=== PATIENT | male | born 1955 | race Caucasian/White ===

== ENCOUNTER → 2024-08-23 | Outpatient (CLI) | payer MEDICARE, MEDICAID, SELFPAY ==
[2024-08-23 13:11] LABS: Basophils % (Auto) 0 % (0-2.5); Eosinophils # (Auto) 0.2 Thou/mm3 (0.0-0.5); Eosinophils % (Auto) 3 % (0-10); Hematocrit 42.7 % (41.0-53.0); Hemoglobin 14.2 g/dL (13.5-16.0); Immature Granulocytes % (Auto) 0 % (0-0); Immature Granulocytes Auto 0.02 Thou/mm3 (0.00-0.00); Lymphocytes # (Auto) 2.1 Thou/mm3 (1.0-4.8); Lymphocytes % (Auto) 27 % (10-50); Mean Corpuscular HGB Conc 33.3 g/dl (31.0-37.0); Mean Corpuscular Hemoglobin 29.2 pg (25.0-35.0); Mean Corpuscular Volume 88 fL (80-100); Monocytes # (Auto) 0.5 Thou/mm3 (0.0-0.8); Monocytes % (Auto) 7 % (0-12); Neutrophils % (Auto) 63 % (37-80); Nucleated Red Blood Cell % 0 /100 WBC (0); Platelet Count 186 Thou/mm3 (140-440); RDW Standard Deviation 41.3 fL (35.1-43.9); Red Blood Count 4.87 Miln/mm3 (4.50-5.90); White Blood Count 7.9 Thou/mm3 (3.8-10.6)
[2024-08-23 13:28] LABS: Alanine Aminotransferase 31 U/L (10-49); Albumin, Serum 4.7 gm/dL (3.4-4.8); Albumin/Globulin Ratio 1.9 (1.2-2.2); Alkaline Phosphatase 95 U/L (46-116); Anion Gap 6 (7-16); Aspartate Amino Transferase 21 U/L (0-34); BUN/Creatinine Ratio 17 Ratio (12-20); Bilirubin,Total 0.2 mg/dL (0.3-1.2); Blood Urea Nitrogen 19 mg/dL (9-23); Calcium 10.3 mg/dL (8.3-10.6); Calcium (Corrected) 10.3 mg/dL (8.5-10.1); Carbon Dioxide 30.9 mMol/L (20.0-31.0); Chloride 101 mMol/L (98-107); Creatinine (Component) 1.1 mg/dL (0.6-1.3); Free T4 (Free Thyroxine) 1.12 ng/dL (0.89-1.76); Globulin 2.5 gm/dL (2.3-3.5); Glucose 126 mg/dL (74-106); Osmolality,Calculated 279 (275-295); Potassium 4.2 mMol/L (3.4-5.1); Sodium 138 mMol/L (136-145); Thyroid Stimulating Hormone 1.79 uIU/mL (0.55-4.78); Total Protein 7.2 gm/dL (5.7-8.2); eGFR > 60 See Note
[2024-08-23 13:29] LABS: Ferritin 454 ng/mL (10.5-307.3)
[2024-08-23 13:33] LABS: Sed Rate (ESR) 27 mm/hr (0-20)
== END | disposition home or self-care (01) ==
LOC: COPL 12:00
PROVIDERS: PCP Family Medicine; Referring Provider Family Medicine; Visit Provider Family Medicine
DX: E11.65 Type 2 diabetes mellitus with hyperglycemia (principal); M51.360 Other intervertebral disc degeneration, lumbar region with discogenic back pain only; G47.00 Insomnia, unspecified
CPT/HCPCS: 36415; 80053; 82728; 84439; 84443; 85025; 85652

== ENCOUNTER → 2024-09-21 | Outpatient (CLI) | payer MEDICARE, MEDICAID, SELFPAY ==
[2024-09-21 12:14] LABS: Basophils % (Auto) 0 % (0-2.5); Eosinophils # (Auto) 0.3 Thou/mm3 (0.0-0.5); Eosinophils % (Auto) 4 % (0-10); Hematocrit 44.2 % (41.0-53.0); Hemoglobin 14.7 g/dL (13.5-16.0); Immature Granulocytes % (Auto) 0 % (0-0); Immature Granulocytes Auto 0.03 Thou/mm3 (0.00-0.00); Lymphocytes # (Auto) 1.7 Thou/mm3 (1.0-4.8); Lymphocytes % (Auto) 25 % (10-50); Mean Corpuscular HGB Conc 33.3 g/dl (31.0-37.0); Mean Corpuscular Hemoglobin 28.7 pg (25.0-35.0); Mean Corpuscular Volume 86 fL (80-100); Monocytes # (Auto) 0.5 Thou/mm3 (0.0-0.8); Monocytes % (Auto) 8 % (0-12); Neutrophils # (Auto) 4.4 Thou/mm3 (1.8-7.7); Neutrophils % (Auto) 63 % (37-80); Nucleated Red Blood Cell % 0 /100 WBC (0); Platelet Count 157 Thou/mm3 (140-440); RDW Standard Deviation 40.9 fL (35.1-43.9); Red Blood Count 5.12 Miln/mm3 (4.50-5.90); White Blood Count 6.9 Thou/mm3 (3.8-10.6)
[2024-09-21 12:22] LABS: Glucose Estimated Average 143 mg/dL (80-131); Hemoglobin A1C 6.6 % Hgb (4.8-6.0)
[2024-09-21 12:40] LABS: Alanine Aminotransferase 35 U/L (10-49); Albumin, Serum 4.9 gm/dL (3.4-4.8); Albumin/Globulin Ratio 1.9 (1.2-2.2); Alkaline Phosphatase 92 U/L (46-116); Anion Gap 8 (7-16); Aspartate Amino Transferase 23 U/L (0-34); BUN/Creatinine Ratio 18 Ratio (12-20); Bilirubin,Total 0.4 mg/dL (0.3-1.2); Blood Urea Nitrogen 18 mg/dL (9-23); Calcium 10.4 mg/dL (8.3-10.6); Calcium (Corrected) 10.4 mg/dL (8.5-10.1); Carbon Dioxide 31.7 mMol/L (20.0-31.0); Cardiac Risk Estimate 4.8 RATIO (4.0-6.7); Chloride 100 mMol/L (98-107); Cholesterol 169 mg/dL (132-200); Globulin 2.6 gm/dL (2.3-3.5); Glucose 146 mg/dL (74-106); HDL Cholesterol 35 mg/dL (40-60); LDL Cholesterol,Calculated 105 mg/dL (0-130); Osmolality,Calculated 284 (275-295); Potassium 4.2 mMol/L (3.4-5.1); Sodium 140 mMol/L (136-145); Total Protein 7.5 gm/dL (5.7-8.2); Triglycerides 147 mg/dL (30-150); eGFR > 60 See Note
[2024-09-21 13:23] LABS: Collection Type, Urine Clean Catch; WBC,Urine 0 /hpf (0-5)
[2024-09-21 13:47] LABS: Bilirubin,Urine Negative (Negative); Blood,Urine Negative (Negative); Clarity,Urine Clear (Clear/Hazy); Color,Urine Lt-Yellow (Lt Yel-Yel); Glucose, Urine Negative (Negative); Ketones,Urine Negative (Negative); Leukocyte Esterase,Urine Negative (Negative); Nitrite,Urine Negative (Negative); PH,Urine 6.5 (5.0-7.0); Protein,Urine Negative (Neg - Trace); RBC,Urine 3 /hpf (0-3); Specific Gravity,Urine 1.016 (1.001-1.035); Squamous Epithelial Cell,Urine < 1 /hpf (0-5); Urobilinogen,Urine Negative mg/dL (0.0-1.0)
[2024-09-21 14:16] LABS: Amphetamine/Methamp Scrn,U Negative (Negative); Barbiturate Screen,Urine Negative (Negative); Benzodiazepines Screen,Urine Positive (Negative); Benzoylecgonine Screen, Ur Negative (Negative); Creatinine MALB Rnd Ur 72 mg/dL (30-125); Fentanyl Screen,Urine Negative (Negative); Microalbumin, Random Urine < 3 mg/L (0-300); Opiate Screen,Urine Positive (Negative); THC Screen,Urine Negative (Negative)
== END | disposition home or self-care (01) ==
LOC: COPL 11:28
PROVIDERS: PCP Family Medicine; Referring Provider Family Medicine; Visit Provider Family Medicine
DX: E11.65 Type 2 diabetes mellitus with hyperglycemia (principal); Z79.891 Long term (current) use of opiate analgesic
CPT/HCPCS: 36415; 80053; 80061; 80307; 81001; 82043; 82570; 83036; 85025

== ENCOUNTER → 2024-11-01 | Outpatient (CLI) | payer MEDICARE, MEDICAID, SELFPAY ==
--- NOTE | 2024-11-01 13:00 | XR_ITS ---
Examination: Bone densitometry Date and time of exam:November 01, 2024 1320 hrs. Indications: 69-year-old male with diagnosis age related osteoporosis, ankle fracture 28 years ago, diabetic, vitamin D 2 years Technique: Lumbar spine and hip total bone mineralization values of an calculated. Peak reference and age match control results have been displayed. Findings: Lumbar spine total bone mineralization is1.047 gm/cm2. This is 0.4 standard deviations below peak reference. This is 0.4 standard deviations above age-matched controls. Hip total bone mineralization is 0.966 gm/cm2 This is 0.4 standard deviations below peak reference. This is 0.1 standard deviations above age-matched controls Impression: There is normal mineralization based on lumbar spine measurements. There is osteopenia based on hip measurements
== END | disposition home or self-care (01) ==
PROVIDERS: PCP Family Medicine; Referring Provider Family Medicine; Visit Provider Family Medicine
DX: M85.88 Other specified disorders of bone density and structure, other site (principal)
CPT/HCPCS: 77080

== ENCOUNTER 2024-11-03 21:51 | Inpatient (IN) | payer MEDICARE, MEDICAID, SELFPAY ==
[2024-11-03 21:59] VITALS: PULSE 93; RESP 18; O2SAT 98
[2024-11-03 22:14] VITALS: BP 128/83; PULSE 107; RESP 19; TEMP 36.5; O2SAT 97
--- NOTE | 2024-11-03 22:41 | EDRME_ITS ---
Rapid Medical Screening Exam [facility] Arrival date/time: 11/03/24 21:51 69M with history of Afib, DM, and cholecystectomy presents to ED with 4 days of worsening constipation, ab pain, and N/V. Chief Complaint: Abdominal Pain Vital signs: Vital Signs Temperature 97.7 F 11/03/24 22:14 Pulse Rate 107 H 11/03/24 22:14 Respiratory Rate 19 11/03/24 22:14 Blood Pressure 128/83 11/03/24 22:14 Pulse Oximetry (%) 97 11/03/24 22:14 Oxygen Delivery Method Room Air 11/03/24 22:14
[2024-11-03 23:23] VITALS: BMI 34.3
[2024-11-03 23:34] LABS: Basophils % (Auto) 0 % (0-2.5); Eosinophils % (Auto) 0 % (0-10); Hematocrit 51.2 % (41.0-53.0); Hemoglobin 17.2 g/dL (13.5-16.0); Immature Granulocytes % (Auto) 1 % (0-0); Immature Granulocytes Auto 0.09 Thou/mm3 (0.00-0.00); Lymphocytes # (Auto) 0.7 Thou/mm3 (1.0-4.8); Lymphocytes % (Auto) 5 % (10-50); Mean Corpuscular HGB Conc 33.6 g/dl (31.0-37.0); Mean Corpuscular Hemoglobin 28.9 pg (25.0-35.0); Mean Corpuscular Volume 86 fL (80-100); Monocytes % (Auto) 6 % (0-12); Neutrophils % (Auto) 88 % (37-80); Nucleated Red Blood Cell % 0 /100 WBC (0); Platelet Count 176 Thou/mm3 (140-440); RDW Standard Deviation 42.2 fL (35.1-43.9); Red Blood Count 5.96 Miln/mm3 (4.50-5.90); White Blood Count 14.8 Thou/mm3 (3.8-10.6)
[2024-11-03 23:35] LABS: Lactate (Lactic Acid) 4.1 mMol/L (0.4-2.0)
[2024-11-03] MEDS: ONDANSETRON INJ 2 MG/ML INJ 2 ML 4 MG IV (23:40)
--- NOTE | 2024-11-03 23:44 | EDNOTE_ITS ---
ED Abdominal Pain RME/HPI General Chief Complaint: Abdominal Pain Stated complaint: CONSTIPATION Time seen by provider: 11/03/24 23:44 Arrival date/time: 11/03/24 21:51 Limitations: no limitations RME / HPI RME / HPI narrative: 11/03/24 21:51 69M with history of Afib, DM, and cholecystectomy presents to ED with 4 days of worsening constipation, ab pain, and N/V. Dr. Hay's Main ED Evaluation: 69yo male with a history of DM, aFib presents to the ED for a chief complaint of constipation x 4 days. Patient states he was able to pass small amounts of stool yesterday, but has continued to have generalized abdominal pain and N/V x 3 days, so he came in for evaluation. He denies any fever, chills, UTI symptoms or any other associated symptoms. No known allergies. Related Data Home Medications ?Medication ?Instructions ?Recorded ?Confirmed alprazolam 0.5 mg tablet (Xanax) 0.5 mg PO BID PRN Anx iety 08/25/18 08/22/22 tramadol 50 mg tablet 50 mg PO BID 08/25/18 baclofen 10 mg tablet 10 mg PO BID PRN muscle spas ms 08/02/19 08/22/22 colchicine 0.6 mg tablet 0.6 mg PO QDAY 08/02/1908/07 aspirin 81 mg tablet,delayed 81 mg PO QDAY 08/21/22 release cetirizine 10 mg tablet 10 mg PO QDAY 08/21/2208/22 colchicine 0.6 mg tablet 0.6 mg PO QDAY 08/21/2208/07 ferrous sulfate 325 mg (65 mg 325 mg PO QDAY 08/21/22 08/22/22 iron) tablet gabapentin 300 mg tablet,extended 300 mg PO TID 08/22/22 release 24 hr pentoxifylline 400 mg 400 mg PO DAILY 08/21/22 tablet,extended release Previous Rx's ?Medication ?Instructions ?Recorded metformin 1,000 mg tablet 1,000 mg PO BID #0 tabs 08/08 Allergies Allergy/AdvReac Type Severity Reaction Status Date / Time No Known Allergies Allergy Verified 08/22/22 09:31 Review of Systems Review of Systems Systems Reviewed: All systems reviewed, normal except as documented ED Exam General Limitations: Present no limitations General appearance: Present alert and other (appears uncomfortable) Head Head exam: Present atraumatic Eye Eye exam: Present normal appearance, PERRL and EOMI ENT ENT exam: Present normal exam, normal oropharynx and mucous membranes dry Neck Neck exam: Present normal inspection, full ROM and trachea midline Chest Chest inspection: Present normal inspection and symmetric chest wall rise Respiratory Respiratory exam: Present normal lung sounds bilaterally Cardiovascular Cardiovascular exam: Present regular rate, normal rhythm and normal heart sounds Abdominal Exam Abdominal exam: Present soft, distention (significant), tenderness (diffuse; has more pain at the left mid abdomen compared to the right), guarding, scar (well- healed at the midline) and other (high pitched bowel sounds) Extremities Exam Extremities exam: Present normal inspection and full ROM Back Exam Back exam: Present normal inspection and full ROM Neurological Exam Neurological exam: Present alert, oriented X3 and CN II-XII intact Psychiatric Psychiatric exam: Present normal affect and normal mood Skin Skin exam: Present warm, dry, intact and normal color Course Course Course Narrative: 2345: Sepsis alert initiated. Orders made at this time are congruent with ED Adult Sepsis Order List. Re-evaluation is to be completed. 2359: NS IVF started. 0230: Sepsis reassessment performed consisting of lab review, vitals, physical exam including auscultation of heart, lungs, and visual evaluation of capillary refills, mucosal membranes and extremities. Quality Measures Possible source: GI tract/intra-abdominal Blood cultures ordered: yes Antibiotic ordered: Yes Pertinent labs: 11/03/24 11/04/24 23:27 00:24 Lactic Acid 4.1 H* mMol/L Pending (0.4-2.0) Procalcitonin 0.41 ng/ml (0.0-0.49) sepsis Orders Category Date Time Status COVID-19 Screening Questionnaire NOW Care 11/04/24 04:[address] Screening NOW Care 11/03/24 22:[address] Screening NOW Care 11/03/24 23:48 Completed Pickling Tank Operator STAT Care 11/03/24 23:45 Active Continuous Pulse Oximetry STAT Care 11/03/24 23:45 Completed Decision to Admit X1 Care 11/04/24 04:30 Completed EKG (ED ONLY) *Do not use* NOW Care 11/03/24 23:45 Completed Insert IV NOW Care 11/03/24 22:40 Active Insert IV NOW Care 11/03/24 23:45 Completed NPO STAT Care 11/03/24 23:45 Active Strict Intake and Output Routine Care 11/03/24 23:[address] angio abdomen pelvis Stat Exams 11/03/24 23:47 Ordered EKG (ED Only) Stat Exams 11/03/24 23:45 Ordered XR chest 1V SEPSIS PROTOCOL Stat Exams 11/03/24 23:47 Completed B-Type Natriuretic Peptide Stat Lab 11/03/24 23:27 Completed Blood Culture (Lab) Stat Lab 11/03/24 23:45 Received CBC Stat Lab 11/03/24 23:27 Completed CMP [Comprehensive Metabolic Panel] Stat Lab 11/03/24 23:27 Completed LDH (Lactate Dehydrogenase) Stat Lab 11/03/24 23:27 Completed Lactate (Lactic Acid) Stat Lab 11/03/24 23:27 Completed Lactic Acid, 3 HR Stat Lab 11/04/24 00:24 Received Lipase Stat Lab 11/03/24 23:27 Completed Magnesium Stat Lab 11/03/24 23:27 Completed Partial Thromboplastin Time Stat Lab 11/03/24 23:27 Completed Phosphorous Stat Lab 11/03/24 23:27 Completed Procalcitonin Stat Lab 11/03/24 23:27 Completed Prothrombin Time with INR Stat Lab 11/03/24 23:27 Completed Troponin I Stat Lab 11/03/24 23:27 Completed Urinalysis Stat Lab 11/04/24 00:57 Completed Urine Culture Stat Lab 11/04/24 00:57 Received Morphine Inj Med 11/04/24 00:48 Discontinued 4 mg IVP X1 ONE Ondansetron Inj [Zofran Inj] Med 11/03/24 22:40 Discontinued 4 mg IV X1 ONE Piper/Tazo Inj [Zosyn Inj] 3.375 gm Med 11/04/24 03:18 Discontinued SODIUM CHLORIDE 0.9% (Popper) [NS 0.9% (Popper)] 50 ml IV X1 Sodium Chloride 0.9% 1000 ml [Ns] 2,328 ml Med 11/03/24 23:45 Discontinued IV 2,328 mls/hr Reevaluation(s) Reevaluation #1: Patient not vomiting at this time. Pain is improved. Not hypotensive. Abdomen without rebound. Time: 05:00 Reevaluation #2: Patient treated for sepsis, Zosyn is given. 30 mL/kg ideal body weight given. Lactic acid is pending. Time: 05:22 Vital Signs Vital signs: Vital Signs Temperature 97.7 F 11/03/24 22:14 Pulse Rate 107 H 11/03/24 22:14 Respiratory Rate 19 11/03/24 22:14 Blood Pressure 128/83 11/03/24 22:14 Pulse Oximetry (%) 97 11/03/24 22:14 Oxygen Delivery Method Room Air 11/03/24 22:14 Abdominal Pain MDM MDM Narrative MDM Narrative:: Patient has not had any emetic episodes here in the ED. His pain has improved and has not required any further pain medications. Patient data External records reviewed:: [facility] previous records (Per chart review, patient was seen here on 06/22/22 for cellulitis.) Clinical information provided by:: patient Social determinants that could affect healthcare access:: none Patient has the following chronic illnesses:: DM, aFib How is presenting disease/condition affected by chronic disease/condition?: uneffected by Evaluation data The following diagnostics were reviewed and interpreted by me:: lab results and radiology exam(s) Lab and/or radiology exams considered but not ordered:: none Interpretation Summary: WBC count is elevated at 14.8 with a left shift, Lactic Acid is elevated at 4.1, Glucose is elevated at 272, Lipase is normal, Telerad Preliminary Report Draft Patient: JUANCARLOS MCDANIEL [facility] Record#: [id number] Birthdate: 1955 Age/Sex: 69 / M Location: [facility] Attending Dr: Ordering Physician: Date of Service: Procedure(s): Accession Number(s): cc: ~ CT angiogram of abdomen and pelvis with intravenous contrast (axial sections with sagittal and coronal reformats) November 04, 2024 at 0102 hours Clinical History: 69-yo male with abdominal pain/ elevated lactic ac Compared with the prior study dated August 02, 2019. Findings: Left basilar dependent and streaky atelectasis is noted. Rectus muscle diastasis is present. There is a small fat-containing umbilical hernia. There is a small fat-containing hernia in the left lateral abdominal wall. There is a large left lower anterolateral abdominal wall hernia, incom pletely imaged, containing fat and mildly distended small bowel loops. Fatty infiltration of the liver is noted. The gallbladder is surgically absent. The spleen, pancreas, adrenals and kidneys are unremarkable. The ileal loops are mildly dilated with air-fluid levels. The appendix is not definitively visualized; however, there is no evidence of inflammatory process in the right lower quadrant. Moderate amount of fecal material is present in the colon and rectum. The urinary bladder is unremarkable. There is no free fluid, free air or abscess. The abdominal aorta demonstrates mild atheromatous calcification without evidence of dissection or aneurysm. There are postsurgical changes in the left inguinal region. Mild degenerative changes are noted in the lumbar spine. There is mild degenerative retrolisthesis of L1 on L2. There is a 1.7 cm lucent area in the left iliac bone, likely benign. Impression: Large left lower anterolateral abdominal wall hernia, incompletely imaged, containing fat and mildly distended small bowel loops, concerning for incarceration with associated small bowel obstruction. Recommend clinical correlation and follow-up. Other findings as described above. Report Electronically Signed By: Quoc Chacon 11/04/2024 3:02:37 AM [EST] Medications / Prescriptions Medications or Prescriptions considered but not ordered:: none Medication administrations:: Medication Administration History Acetaminophen (Acetaminophen 325 Mg Tablet) 650 mg PO Q6H PRN PRN Reason: Fever >101.5 Stop: 12/04/24 04:51 Acetaminophen (Acetaminophen 325 Mg Tablet) 650 mg PO Q6H PRN PRN Reason: PAIN SCALE 1-3 (mild Stop: 12/04/24 04:51 Baclofen (Baclofen 10 Mg Tablet) 10 mg PO QDAY CEDRIC Stop: 12/04/24 08:59 Dextrose (Dextrose 50%-Water Inj 50 Ml Syringe) 25 ml IV Q15MIN PRN PRN Reason: BG 50-70 responsive npo pt Stop: 12/04/24 04:56 Dextrose (Dextrose 50%-Water Inj 50 Ml Syringe) 50 ml IV Q15MIN PRN PRN Reason: BG <50 OR BG <70 & pt unresponsive Stop: 12/04/24 04:56 Glucagon (Glucagon Inj 1 Mg Vial) 1 mg IM Q15MIN PRN PRN Reason: BG <70, and no IV access Heparin Sodium (Porcine) (Heparin Sod Inj 5000 Unit/Ml Vial) 5,000 unit SC Q12H CEDRIC Stop: 11/18/24 04:59 Hydromorphone HCl (Hydromorphone Inj 2 Mg/Ml Vial) 1 mg IVP Q4H PRN PRN Reason: PAIN SCALE 7-10 (Severe Stop: 11/09/24 04:51 Sodium Chloride (Ns) 1,000 mls @ 100 mls/hr IV .Q10H CEDRIC Stop: 12/04/24 04:59 Insulin Human Lispro (Insulin Lispro (Admelog) 1 Unit/0.01 Ml Unit) 0 unit SC Q6H CEDRIC; Protocol Stop: 12/04/24 04:59 Ondansetron HCl (Ondansetron Inj 2 Mg/Ml Inj 2 Ml) 4 mg IV Q6H PRN; Protocol PRN Reason: NAUSEA OR VOMITING Stop: 12/04/24 04:51 Oxycodone/Acetaminophen (Oxycodone/Apap 5/325 Tablet) 1 tab PO Q6H PRN PRN Reason: PAIN SCALE 4-6 (Moderate Stop: 11/09/24 04:51 Pantoprazole Sodium (Pantoprazole Inj 40 Mg Vial) 40 mg IVP QDAY CEDRIC Stop: 12/04/24 08:59 Discontinued Medications Sodium Chloride (Ns) 2,328 mls @ 2,328 mls/hr 30 ml/kg infuse over 60 min (2328 ml) IV .Q1H ONE Stop: 11/04/24 00:44 Last Infusion: 11/04/24 02:00 Dose: Infused Documented By: Admin: 11/03/24 23:59 Dose: 2,328 mls/hr Documented By: EF Piperacillin Sod/Tazobactam (Sod 3.375 gm/ Sodium Chloride) 50 mls @ 100 mls/hr IV X1 ONE Stop: 11/04/24 03:47 Last Infusion: 11/04/24 03:55 Dose: Infused Documented By: Admin: 11/04/24 03:25 Dose: 100 mls/hr Documented By: EF Morphine Sulfate (Morphine Sulf Inj 10 Mg/Ml Vial) 4 mg IVP X1 ONE Stop: 11/04/24 00:49 Last Admin: 11/04/24 00:53 Dose: 4 mg Documented By: EF Comments: Ondansetron HCl (Ondansetron Inj 2 Mg/Ml Inj 2 Ml) 4 mg IV X1 ONE; Protocol Stop: 11/03/24 22:41 Last Admin: 11/03/24 23:40 Dose: 4 mg Documented By: EF see above Consultations Consultation(s) initiated? (list below): Yes Consultation #1 (Physician, Specialty, Details): Discussed case with [Dr. Lewis] from [general surgery] regarding [consultation]. Discussed patients ED course, exam findings, labs, and radiology results. States to admit the patient to the hospitalist and agrees to consult. Time: 04:16 Consultation #2 (Physician, Specialty, Details): Discussed case with [the resident physician, attending Dr. Ortiz] from Hospitalist service regarding admission. Discussed patients ED course, exam findings, labs, and radiology results. The Hospitalist [agrees] to accept the patient for admission. Time: 04:19 Diagnosis Differential diagnosis abdominal pain: constipation, small bowel obstruction and other (dehydration, electrolyte abnormality) Most likely diagnosis given after review of the tests above:: see below Admission Indicated Admission indicated?: not indicated Admission Request Was there a request for admission?: No Disposition Plan Disposition Plan: Discharge Discharge Attestation Discharge Attestation: The patient and all family members were given an opportunity to ask questions and understood the discharge instructions. Discharge instructions specifically effects, indications for sooner follow up or return to the emergency department, and the expected course of current diagnosis. Patient condition: Stable Critical Care Time Critical Care Time Critical Care Time: Yes Total Critical Care Time (min.): 40 Attestation: The high probability of sudden, clinically significant deterioration in the patient?s condition required the highest level of my preparedness to intervene urgently. The services I provided to this patient were to treat and/or prevent clinically significant deterioration. Services included the following: chart data review, reviewing nursing notes and/or old charts, documentation time, professional benefits sales consultant collaboration regarding findings and treatment options, medication orders and management, direct patient care, vital sign assessments and ordering, interp reting and reviewing diagnostic studies and lab tests. Aggregate critical care time includes only time during which I was engaged in work directly related to the patient?s care, as described above, whether at bedside or elsewhere in the Emergency Department. It did not include time spent performing other reported procedures or the services of residents, students, nurses or physician assistants. Discharge Plan Plan Patient Disposition: Admit Acute Care w/in Hospital Problem List Clinical Impression: SBO (small bowel obstruction)
--- NOTE | 2024-11-03 23:47 | XR_ITS ---
Examination: CTA abdomen, with intravenous contrast. CTA pelvis, with intravenous contrast. 2-D sagittal and coronal reconstructions. 3-D reconstructions. Date and time of exam: October 27, 2024 0102 hrs. Indications: Severe abdominal pain and cramping beginning 2 days ago CTDI vol (mgy) 12.2 DLP (MGycm) 882 Technique: Multiple CTA images, 2.0 mm slice thickness, obtained abdomen, pelvis, with the high-resolution 64 slice scanner. 100 cc Isovue-370 is administered intravenously. Sagittal and coronal 2-D reconstructions are obtained. 3-D reconstructions, angiographic images are obtained. 3-D postprocessing, including vascular maximum intensity projections. Low dose protocols were performed. One or more of the following dose reduction techniques were used; automated exposure control, adjustment of the mA and/or KV according to patient size, use of iterative reconstruction technique. Findings: AP dimension ascending thoracic aorta 3.8 cm Mild enlargement cardiac contour Atelectasis in the left lower lobe Hepatomegaly 17 cm, splenomegaly 13 cm No pancreatic or adrenal mass Dilated small bowel loops Given the patient's size, the entire abdomen is not included on these films 10 mm fat-containing umbilical hernia Large left lateral abdominal wall hernia defect partly visualized containing small bowel, suspicious for incarceration of the small bowel axial image 253 Urinary bladder intact Transverse prostate dimension 3.8 cm Moderate osteopenia Impression: Hepatosplenomegaly Small bowel obstruction secondary to incarcerated small bowel in a partially visualized large left lateral abdominal wall hernia defect
--- NOTE | 2024-11-03 23:47 | XR_ITS ---
Examination: AP chest single view Technique one AP portable upright chest single view Exam date and time: November 03, 2024 1150 hrs. Comparison August 06, 2019 Indications: Sepsis alert Findings: [id number] prominence of ventricle Mild opacity left base retrocardiac Right lung clear Moderate osteopenia Impression: Suspicious for early left base pneumonia
[2024-11-03 23:53] LABS: Alanine Aminotransferase 67 U/L (10-49); Albumin, Serum 5.3 gm/dL (3.4-4.8); Albumin/Globulin Ratio 1.7 (1.2-2.2); Alkaline Phosphatase 106 U/L (46-116); Anion Gap 13 (7-16); Aspartate Amino Transferase 56 U/L (0-34); BUN/Creatinine Ratio 15 Ratio (12-20); Bilirubin,Total 0.6 mg/dL (0.3-1.2); Blood Urea Nitrogen 17 mg/dL (9-23); Calcium 10.4 mg/dL (8.3-10.6); Calcium (Corrected) 10.4 mg/dL (8.5-10.1); Carbon Dioxide 27.3 mMol/L (20.0-31.0); Chloride 95 mMol/L (98-107); Creatinine (Component) 1.1 mg/dL (0.6-1.3); Estimated Creatinine Clearance 85.2 mL/min (>60); Globulin 3.2 gm/dL (2.3-3.5); Glucose 272 mg/dL (74-106); Lipase 30 U/L (12-53); Osmolality,Calculated 281 (275-295); Potassium 4.2 mMol/L (3.4-5.1); Sodium 135 mMol/L (136-145); Total Protein 8.5 gm/dL (5.7-8.2); eGFR > 60 See Note
[2024-11-03] MEDS: SODIUM CHLORIDE 0.9% 1000 ML 2,328 ML 2328 ML IV (23:59)
[2024-11-04] VITALS (8 sets, daily range): BP systolic 100–125; BP diastolic 60–92; PULSE 70–127; RESP 14–18; TEMP 36.1–37; O2SAT 94–97
[2024-11-04 00:41] LABS: INR 1.1 (0.9-1.3); Partial Thromboplastin Time 28.2 Seconds (22.0-36.0); Prothrombin Time 11.7 Seconds (9.0-12.2)
[2024-11-04 00:45] LABS: B-Type Natriuretic Peptide 48 pg/mL (0-100)
[2024-11-04 00:47] LABS: LDH (Lactate Dehydrogenase) 359 U/L (120-246); Phosphorous 2.7 mg/dL (2.4-5.1); Procalcitonin 0.41 ng/ml (0.0-0.49); Troponin I < 0.002 ng/mL (0.0-0.045)
[2024-11-04] MEDS: MORPHINE SULF INJ 10 MG/ML VIAL 4 MG IVP (00:53)
[2024-11-04 01:06] LABS: Collection Type, Urine Clean Catch; Squamous Epithelial Cell,Urine 0 /hpf (0-5)
[2024-11-04 01:10] LABS: Bilirubin,Urine Negative (Negative); Blood,Urine Negative (Negative); Clarity,Urine Clear (Clear/Hazy); Color,Urine Yellow (Lt Yel-Yel); Glucose, Urine 1+ (Negative); Ketones,Urine 1+ (Negative); Leukocyte Esterase,Urine Negative (Negative); Nitrite,Urine Negative (Negative); PH,Urine 6.5 (5.0-7.0); Protein,Urine 1+ (Neg - Trace); RBC,Urine 2 /hpf (0-3); Specific Gravity,Urine 1.032 (1.001-1.035); Urobilinogen,Urine Negative mg/dL (0.0-1.0); WBC,Urine 1 /hpf (0-5)
[2024-11-04 02:29] LABS: Reflex Lactate? Y
[2024-11-04 03:00] LABS: Lactic Acid, 3 HR 3.2 mMol/L (0.4-2.0)
--- NOTE | 2024-11-04 03:02 | PRELIM_ITS ---
CT angiogram of abdomen and pelvis with intravenous contrast (axial sections with sagittal and coronal reformats) November 04, 2024 at 0102 hours Clinical History: 69-yo male with abdominal pain/ elevated lactic ac Compared with the prior study dated August 02, 2019. Findings: Left basilar dependent and streaky atelectasis is noted. Rectus muscle diastasis is present. There is a small fat-containing umbilical hernia. There is a small fat-containing hernia in the left lateral abdominal wall. There is a large left lower anterolateral abdominal wall hernia, incompletely imaged, containing fat and mildly distended small bowel loops. Fatty infiltration of the liver is noted. The gallbladder is surgically absent. The spleen, pancreas, adrenals and kidneys are unremarkable. The ileal loops are mildly dilated with air-fluid levels. The appendix is not definitively visualized; however, there is no evidence of inflammatory process in the right lower quadrant. Moderate amount of fecal material is present in the colon and rectum. The urinary bladder is unremarkable. There is no free fluid, free air or abscess. The abdominal aorta demonstrates mild atheromatous calcification without evidence of dissection or aneurysm. There are postsurgical changes in the left inguinal region. Mild degenerative changes are noted in the lumbar spine. There is mild degenerative retrolisthesis of L1 on L2. There is a 1.7 cm lucent area in the left iliac bone, likely benign. Impression: Large left lower anterolateral abdominal wall hernia, incompletely imaged, containing fat and mildly distended small bowel loops, concerning for incarceration with associated small bowel obstruction. Recommend clinical correlation and follow-up. Other findings as described above. Report Electronically Signed By: Quoc Chacon 11/04/2024 3:02:37 AM [EST]
[2024-11-04] MEDS: PIPER/TAZO INJ 3.375 GM in SODIUM CHLORIDE 0.9% (Popper) 50 ML IV ×3 (03:25→18:27)
--- NOTE | 2024-11-04 05:03 | EKG_ITS ---
[facility] Test Date: 2024-11-04 Pat Name: JUANCARLOS MCDANIEL Department: Room: - Gender: Male Bill Cutter: : 1955 Requested By: Timbo Ortiz Order Number: [id number] Reading MD: Timbo Ortiz Measurements Intervals [place] Rate: 95 P: 81 SC: 255 QRS: -45 QRSD: 104 T: 53 QT: 360 QTc: 453 Interpretive Statements SINUS RHYTHM WITH FIRST DEGREE AV BLOCK LEFT AXIS DEVIATION [QRS AXIS < -30] LOW QRS VOLTAGE IN PRECORDIAL LEADS [QRS DEFLECTION < 1.0 mV IN CHEST LEADS] POSSIBLE ANTERIOR MYOCARDIAL INFARCTION , PROBABLY OLD [30 ms Q WAVE IN V3/V4, OR R < 0.2 mV IN V4] Compared to ECG 08/21/2022 11:57:39 Left-axis deviation now present Incomplete right bundle-branch block no longer present Left anterior fascicular block no longer present Myocardial infarct finding still present /store/S0/[id number]
--- NOTE | 2024-11-04 05:03 | PD.HHHP ---
Documentation for date of: 11/04/24 HPI - Hospitalist History of Present Illness History of present illness: Patient is a 69 years old male with past medical history of diabetes mellitus, cholecystectomy, muscle graft from abdominal wall to left ankle who presented to the ED with complaint of abdominal pain, nausea and vomiting for 2 days. Patient states, he has not had a regular bowel movement for almost a week but has been passing small meaghan until couple days ago, since then he has not passed any bowel or gas. His abdominal pain also has been worsening, he had total of 5 episodes of vomiting following which he decided to visit the ED. Denies fever, chills, bloody stool, hematemesis, burning micturition. ED course: Patient had a pulse rate of 107 on presentation, rest of the vitals are within normal limits Lab results are significant for WBC of 14.8, hemoglobin 17.2, sodium 135, glucose 272, chloride 95, lactic acid 4.1 corrected calcium 10.4, AST 56, ALT 67, LDH 359, negative lipase and procalcitonin. Coagulation panel is within normal limits, urinalysis shows 1+ protein, 1+ glucose and 1+ ketones. Patient noted to have tachycardia on telemetry, EKG shows sinus tachycardia with prolonged FL interval Chest x-ray suspicious for early left wrist pneumonia CTA abdomen/pelvis, preliminary report shows absent rectal muscle diastases, large left lower anterolateral abdominal wall hernia, containing fat and mildly distended small bowel loops, concerning for incarceration with associated small bowel obstruction, fatty infiltration of the liver, left basilar dependent atelectasis Sepsis alert was called in the ED, patient received IV Zosyn, 30 mL/kg normal saline bolus, IV morphine and Zofran, general surgery was consulted by ED, recommended admission for small bowel obstruction. Past medical history: Diabetes mellitus Past surgical history: Cholecystectomy, multiple surgeries on left ankle including muscle graft from abdominal wall Social history: Used to smoke and drink alcohol, stopped both 25 years ago, denies illicit drug use Review of Systems Review of Systems Systems Reviewed: All systems reviewed, normal except as documented Meds Home Medications and Allergies Home Medications ?Medication ?Instructions ?Recorded ?Confirmed ?Type alprazolam 0.5 mg tablet (Xanax) 0.5 mg PO BID PRN Anxiety 08/25/18 08/22/22 History tramadol 50 mg tablet 50 mg PO BID 08/25/18 08/22/22 History baclofen 10 mg tablet 10 mg PO BID PRN muscle spasms 08/02/19 08/22/22 History colchicine 0.6 mg tablet 0.6 mg PO QDAY 08/02/19 08/22/22 History aspirin 81 mg tablet,delayed 81 mg PO QDAY 08/21/22 08/22/22 History release cetirizine 10 mg tablet 10 mg PO QDAY 08/21/22 08/22/22 History colchicine 0.6 mg tablet 0.6 mg PO QDAY 08/21/22 08/22/22 History ferrous sulfate 325 mg (65 mg 325 mg PO QDAY 08/21/22 08/22/22 History iron) tablet gabapentin 300 mg tablet,extended 300 mg PO TID 08/21/22 08/22/22 History release 24 hr pentoxifylline 400 mg 400 mg PO DAILY 08/21/22 08/22/22 History tablet,extended release Allergies Allergy/AdvReac Type Severity Reaction Status Date / Time No Known Allergies Allergy Verified 08/22/22 09:31 Exam Vital Signs Temp Pulse Resp BP Pulse Ox O2 Del Method 98.2 F 117 H 18 109/92 H 96 Room Air 11/04/24 04:50 11/04/24 04:50 11/04/24 04:50 11/04/24 04:50 11/04/24 04:50 11/04/24 04:50 Narrative GENERAL: Alert and oriented x4, appears in mild distress due to abdominal pain Eyes: EOMI, Anicteric HEART: Regular rate and rhythm, no murmurs, rubs or gallops. LUNGS: Clear on auscultation bilaterally, no wheeze, crackles ABDOMEN: Soft, distended, noticeable bulge on left lower quadrant, tender to palpate, more around the bulge, bowel sound present EXTREMITIES: No edema, noted previous graft over left ankle SKIN: Warm and dry, no jaundice or rashes noted on exposed skin. PSYCHIATRIC: Patient is in normal mood and affect NEURO: Alert and oriented, able to answer questions and follow commands appropriately, moving all his limbs spontaneously, no focal neurological deficit Results - Hospitalist Labs Diagrams: 11/03/24 23:27 11/03/24 23:27 Labs: Short CBC 11/03/24 Range/Units 23:27 WBC 14.8 H (3.8-10.6) Thou/mm3 Hgb 17.2 H (13.5-16.0) g/dL Hct 51.2 (41.0-53.0) % Plt Count 176 (140-440) Thou/mm3 BMP 11/03/24 23:27 Sodium 135 L Potassium 4.2 Chloride 95 L Carbon Dioxide 27.3 BUN 17 Creatinine 1.1 Glucose 272 H Calcium 10.4 Cardiac Enzymes 11/03/24 Range/Units 23:27 Troponin I < 0.002 (0.0-0.045) ng/mL Liver Function 11/03/24 Range/Units 23:27 Total Bilirubin 0.6 (0.3-1.2) mg/dL AST 56 H (0-34) U/L ALT 67 H (10-49) U/L Alkaline Phosphatase 106 (46-116) U/L Albumin 5.3 H (3.4-4.8) gm/dL Urine 11/04/24 Range/Units 00:57 Urine Color Yellow (Lt Yel-Yel) Urine Clarity Clear (Clear/Hazy) Urine pH 6.5 (5.0-7.0) Ur Specific [place] 1.032 (1.001-1.035) Urine Protein 1+ A (Neg - Trace) Urine Glucose (UA) 1+ A (Negative) Assessment & Plan -Hospitalist Additional Plan Additional Plan: Patient is a 69 years old male with past medical history of diabetes mellitus, previous abdominal surgeries presenting with abdominal pain, nausea, vomiting, inability to pass bowel or gas. Found to have small bowel obstruction, possible incarcerated hernia. #Small bowel obstruction #Concern for incarcerated bowel #Anterolateral abdominal wall hernia Patient presented with abdominal pain, nausea and vomiting. Has not had normal bowel movement for a week, complete absence of bowel movement and gas for 2 days. Has large bulge over left lower abdomen with significant tenderness. Preliminary CTA abdomen/pelvis shows large left lower jennie-lateral abdominal wall hernia, containing fat and mildly distended small bowel loops, concerning for incarceration with associated small bowel obstruction We will keep patient n.p.o. Started on IV hydration, normal saline at 100 cc/h Analgesics with IV Dilaudid, oxycodone and Tylenol as needed IV Zofran as needed for nausea/vomiting Discussed with general surgery, recommended holding off on upper GI series, plans to evaluate in the morning for possible need of surgery We will also hold off on NG tube, patient has stopped vomiting and denies any nausea currently #Possible sepsis #Lactic acidosis 2/4 SIRS criteria met with leukocytosis and tachycardia, has lactate of 4.1, negative procalcitonin Unclear source of infection, possibly abdominal infection, possibly secondary to bowel incarceration Sepsis alert was called in the ED due to leukocytosis and tachycardia Patient received 30 cc/kg IV hydration, IV Zofran We will continue with IV zosyn Normal saline at 100 cc/h Cultures obtained #First-degree AV block EKG shows sinus tachycardia with prolonged FL interval Outpatient follow-up #Diabetes mellitus #Hyperglycemia Patient has blood glucose of 272 Started on Lantus 10 along with insulin sliding scale Every 6 hours glucose checks, hypoglycemia protocol Hemoglobin A1c in a.m. #Transaminitis #Fatty liver Patient has AST/ALT of 56/67, ALP 106 CT abdomen/pelvis shows fatty liver We will follow-up with CMP in a.m. 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 DVT prophylaxis: SCDs, holding chemical prophylaxis pending surgery recommendation CODE STATUS: Full code Timbo Ortiz MD Quality Measures Quality Measures sepsis Current suspected stage: sepsis Possible source: GI tract/intra-abdominal Blood cultures ordered: yes Antibiotic ordered: Yes Advance care planning discussed with:: patient
[2024-11-04] MEDS: SODIUM CHLORIDE 0.9% 1000 ML 1,000 ML 100 ML IV ×2 (05:32→18:34)
[2024-11-04] MEDS: HYDROmorphone INJ 2 MG/ML VIAL 1 MG IVP ×3 (05:33→23:34)
[2024-11-04 06:15] LABS: Basophils % (Auto) 0 % (0-2.5); Eosinophils # (Auto) 0.1 Thou/mm3 (0.0-0.5); Eosinophils % (Auto) 1 % (0-10); Hematocrit 43.3 % (41.0-53.0); Hemoglobin 14.5 g/dL (13.5-16.0); Immature Granulocytes % (Auto) 0 % (0-0); Immature Granulocytes Auto 0.04 Thou/mm3 (0.00-0.00); Lymphocytes # (Auto) 2.2 Thou/mm3 (1.0-4.8); Lymphocytes % (Auto) 21 % (10-50); Mean Corpuscular HGB Conc 33.5 g/dl (31.0-37.0); Mean Corpuscular Hemoglobin 29.1 pg (25.0-35.0); Mean Corpuscular Volume 87 fL (80-100); Monocytes # (Auto) 0.8 Thou/mm3 (0.0-0.8); Monocytes % (Auto) 8 % (0-12); Neutrophils # (Auto) 7.3 Thou/mm3 (1.8-7.7); Neutrophils % (Auto) 70 % (37-80); Nucleated Red Blood Cell % 0 /100 WBC (0); Platelet Count 169 Thou/mm3 (140-440); RDW Standard Deviation 42.9 fL (35.1-43.9); Red Blood Count 4.98 Miln/mm3 (4.50-5.90); White Blood Count 10.5 Thou/mm3 (3.8-10.6)
[2024-11-04 06:28] LABS: Alanine Aminotransferase 51 U/L (10-49); Albumin, Serum 4.1 gm/dL (3.4-4.8); Albumin/Globulin Ratio 1.6 (1.2-2.2); Alkaline Phosphatase 83 U/L (46-116); Anion Gap 9 (7-16); Aspartate Amino Transferase 32 U/L (0-34); BUN/Creatinine Ratio 17 Ratio (12-20); Bilirubin,Total 0.5 mg/dL (0.3-1.2); Blood Urea Nitrogen 15 mg/dL (9-23); Calcium 8.9 mg/dL (8.3-10.6); Calcium (Corrected) 8.9 mg/dL (8.5-10.1); Carbon Dioxide 26.4 mMol/L (20.0-31.0); Cardiac Risk Estimate 4.6 RATIO (4.0-6.7); Chloride 104 mMol/L (98-107); Cholesterol 146 mg/dL (132-200); Creatinine (Component) 0.9 mg/dL (0.6-1.3); Estimated Creatinine Clearance 104.2 mL/min (>60); Globulin 2.5 gm/dL (2.3-3.5); Glucose 128 mg/dL (74-106); HDL Cholesterol 32 mg/dL (40-60); LDL Cholesterol,Calculated 93 mg/dL (0-130); Magnesium 2.1 mg/dL (1.6-2.6); Osmolality,Calculated 280 (275-295); Phosphorous 3.1 mg/dL (2.4-5.1); Potassium 4.4 mMol/L (3.4-5.1); Sodium 139 mMol/L (136-145); Total Protein 6.6 gm/dL (5.7-8.2); Triglycerides 107 mg/dL (30-150); eGFR > 60 See Note
[2024-11-04 06:39] LABS: Glucose Estimated Average 143 mg/dL (80-131); Hemoglobin A1C 6.6 % Hgb (4.8-6.0)
[2024-11-04] MEDS: oxyCODONE/APAP 5/325 TABLET 1 TAB PO ×3 (07:39→20:39)
[2024-11-04] MEDS: PANTOPRAZOLE INJ 40 MG VIAL IVP (08:36)
[2024-11-04] MEDS: BACLOFEN 10 MG TABLET PO (08:36)
[2024-11-04] MEDS: INSULIN GLARGINE (Lantus) 5 UNIT/0.05 ML (PER 5 UNITS) 10 UNIT SC (08:37)
--- NOTE | 2024-11-04 09:07 | PD.SURCONS ---
HPI Consult details History of present illness: 69M with DM presenting with abdominal pain and nausea. Pt reports his pain began yesterday in the left lower quadrant, associated with nausea/vomiting which has since resolved. He states his pain is now improved and he no longer has nausea, is feeling hungry. In ER he underwent CT which showed a left anterolateral abdominal wall hernia containing small bowel PMH: DM PSHx: Cholecystectomy, muscle graft from left abdominal wall to left ankle Review of Systems Review of Systems ROS Unobtainable: All systems reviewed & no additional complaints except as documented Meds Home Medications and Allergies Home Medications ?Medication ?Instructions ?Recorded ?Confirmed ?Type alprazolam 0.5 mg tablet (Xanax) 0.5 mg PO BID PRN Anxiety 08/25/18 08/22/22 History tramadol 50 mg tablet 50 mg PO BID 08/25/18 08/22/22 History baclofen 10 mg tablet 10 mg PO BID PRN muscle spasms 08/02/19 08/22/22 History colchicine 0.6 mg tablet 0.6 mg PO QDAY 08/02/19 08/22/22 History aspirin 81 mg tablet,delayed 81 mg PO QDAY 08/21/22 08/22/22 History release cetirizine 10 mg tablet 10 mg PO QDAY 08/21/22 08/22/22 History colchicine 0.6 mg tablet 0.6 mg PO QDAY 08/21/22 08/22/22 History ferrous sulfate 325 mg (65 mg 325 mg PO QDAY 08/21/22 08/22/22 History iron) tablet gabapentin 300 mg tablet,extended 300 mg PO TID 08/21/22 08/22/22 History release 24 hr pentoxifylline 400 mg 400 mg PO DAILY 08/21/22 08/22/22 History tablet,extended release Allergies Allergy/AdvReac Type Severity Reaction Status Date / Time No Known Allergies Allergy Verified 08/22/22 09:31 Exam Vital Signs Temp Pulse Resp BP Pulse Ox O2 Del Method 98.6 F 113 H 16 100/63 97 Room Air 11/04/24 08:00 11/04/24 08:00 11/04/24 08:00 11/04/24 08:00 11/04/24 08:00 11/04/24 08:00 Constitutional Constitutional: no acute distress Routine Respiratory Exam Respiratory: Present no resp distress Routine Abdominal Exam Abdominal: Present soft, hernia (left lower abdominal hernia with no overlying skin changes, no tenderness) and surgical scars (midline scar well-healed); Absent tenderness or distended Results Results: Laboratory Laboratory results: results reviewed Results: Imaging CT scan - abdomen: report reviewed and image reviewed Assessment & Plan Plan 69M with DMII, large left anterolateral abdominal wall hernia containing small bowel who presented with pain and nausea which has since resolved. Despite CT reading pt does not have signs/symptoms of bowel incarceration CLD, advance as tolerated Will follow up
--- NOTE | 2024-11-04 10:08 | CHAP ---
Patient was visited by the Spiritual Care Volunteer who prayed for them. (Volunteer was in the hospital from 09:20-10:08).
--- NOTE | 2024-11-04 10:29 | ESPR_ITS ---
Documentation for date of: 11/04/24 Subjective Subjective Interval history: Patient was seen and examined at bedside this AM. No acute exents overnight. Patient n.p.o., adequate urine output and mentation is at baseline. Patient endorses improvement of vomiting. Still has constant 6/10 central abdominal pain with minimal relief from medications. General surgery says that incarceration and small bowel obstruction are unlikely. Recommended to advance patient to clear liquid diet. If nausea or vomiting ensues, place patient n.p.o. and put an NG tube for small bowel series. General Surgery, Dr. Lewis consulted and closely following the case. Appreciate recommendations Exam Vital Signs Temp Pulse Resp BP Pulse Ox O2 Del Method 98.6 F 113 H 16 100/63 97 Room Air 11/04/24 08:00 11/04/24 08:00 11/04/24 08:00 11/04/24 08:00 11/04/24 08:00 11/04/24 08:00 Narrative Exam Constitutional Alert, oriented x 3 and mild distress. Elderly male saturating on room air. HEENT Vision grossly intact. Patent nares. Trachea midline Respiratory Chest normal on inspection and clear auscultation bilaterally Cardiovascular S1 and S2 audible, RRR. No murmurs carotid bruit. No gross JVD. Abdominal Tense, distended, midline abdominal scar noted, tender to palpation around midline, rectus diastases, absent bowel sounds. Genitourinary No bladder tenderness, no flank pain. Normal to palpation Musculoskeletal Extremities tone within normal limits. No LE edema. Neurological CN II - XII grossly intact. Extremity motor and sensation grossly intact. Skin Warm, dry and intact. Left ankle swollen noted, nontender to palpation, non- pitting. Psychiatric Patient has good affect, is cooperative Objective Labs 11/04/24 06:00 11/04/24 06:00 Labs: Laboratory Results - last 24 hr 11/03/24 11/04/24 11/04/24 23:27 00:24 00:57 WBC 14.8 H RBC 5.96 H Hgb 17.2 H Hct 51.2 MCV 86 MCH 28.9 MCHC 33.6 RDW Std Deviation 42.2 Plt Count 176 Neut % (Auto) 88 H Lymph % (Auto) 5 L [place] % (Auto) 6 Eos % (Auto) 0 Baso % (Auto) 0 Neut # (Auto) 13.0 H Lymph # (Auto) 0.7 L [place] # (Auto) 1.0 H Eos # (Auto) 0.0 Baso # (Auto) 0.0 Immature Gran # (Auto) 0.09 H Absolute Nucleated RBC 0.00 Immature Gran % 1 H Nucleated RBC % 0 PT 11.7 INR 1.1 APTT 28.2 Sodium 135 L Potassium 4.2 Chloride 95 L Carbon Dioxide 27.3 Anion Gap 13 BUN 17 Creatinine 1.1 Estim Creat Clear Calc 85.2 eGFR > 60 BUN/Creatinine Ratio [address] Glu mg/dL Hemoglobin A1c Calculated Osmolality 281 Lactic Acid 4.1 H* 3.2 H Calcium 10.4 Corrected Calcium 10.4 H Phosphorus 2.7 Magnesium 2.0 Total Bilirubin 0.6 AST 56 H ALT 67 H Alkaline Phosphatase 106 Lactate Dehydrogenase 359 H Troponin I < 0.002 B-Natriuretic Peptide 48 Total Protein 8.5 H Albumin 5.3 H Globulin 3.2 Albumin/Globulin Ratio 1.7 Triglycerides Cholesterol LDL Cholesterol, Calc HDL Cholesterol Cholesterol/HDL Ratio Lipase 30 Procalcitonin 0.41 Ur Collection Type Clean Catch Urine Color Yellow Urine Clarity Clear Urine pH 6.5 Ur Specific [place] 1.032 Urine Protein 1+ A Urine Glucose (UA) 1+ A Urine Ketones 1+ A Urine Blood Negative Urine Nitrite Negative Urine Bilirubin Negative Urine Urobilinogen (Auto) Negative Ur Leukocyte Esterase Negative Urine RBC 2 Urine WBC 1 Ur Squamous Epith Cells 0 Urine Bacteria None 11/04/24 06:00 WBC 10.5 RBC 4.98 Hgb 14.5 D Hct 43.3 MCV 87 MCH 29.1 MCHC 33.5 RDW Std Deviation 42.9 Plt Count 169 Neut % (Auto) 70 Lymph % (Auto) 21 [place] % (Auto) 8 Eos % (Auto) 1 Baso % (Auto) 0 Neut # (Auto) 7.3 Lymph # (Auto) 2.2 [place] # (Auto) 0.8 Eos # (Auto) 0.1 Baso # (Auto) 0.0 Immature Gran # (Auto) 0.04 H Absolute Nucleated RBC 0.00 Immature Gran % 0 Nucleated RBC % 0 PT INR APTT Sodium 139 Potassium 4.4 Chloride 104 Carbon Dioxide 26.4 Anion Gap 9 BUN 15 Creatinine 0.9 Estim Creat Clear Calc 104.2 eGFR > 60 BUN/Creatinine Ratio 17 Glucose [address] Glu mg/dL 143 H Hemoglobin A1c 6.6 H Calculated Osmolality 280 Lactic Acid Calcium 8.9 D Corrected Calcium 8.9 D Phosphorus 3.1 Magnesium 2.1 Total Bilirubin 0.5 AST 32 ALT 51 H Alkaline Phosphatase 83 D Lactate Dehydrogenase Troponin I B-Natriuretic Peptide Total Protein 6.6 Albumin 4.1 D Globulin 2.5 Albumin/Globulin Ratio 1.6 Triglycerides 107 Cholesterol 146 LDL Cholesterol, Calc 93 HDL Cholesterol 32 L Cholesterol/HDL Ratio 4.6 Lipase Procalcitonin Ur Collection Type Urine Color Urine Clarity Urine pH Ur Specific [place] Urine Protein Urine Glucose (UA) Urine Ketones Urine Blood Urine Nitrite Urine Bilirubin Urine Urobilinogen (Auto) Ur Leukocyte Esterase Urine RBC Urine WBC Ur Squamous Epith Cells Urine Bacteria Quality Measures Quality Measures sepsis Current suspected stage: ruled out Possible source: GI tract/intra- abdominal Blood cultures ordered: yes Antibiotic ordered: Yes Advance care planning discussed with:: patient Assessment & Plan Assessment Current Active Medications: Generic Name Dose Route Start Last Admin Trade Name Freq PRN Reason Stop Dose Admin Acetaminophen 650 mg 11/04/24 04:52 Acetaminophen 325 Mg Tablet PO 12/04/24 04:51 Q6H PRN Fever >101.5 Acetaminophen 650 mg 11/04/24 04:52 Acetaminophen 325 Mg Tablet PO 12/04/24 04:51 Q6H PRN PAIN SCALE 1-3 (mild Baclofen 10 mg 11/04/24 09:00 11/04/24 08:36 Baclofen 10 Mg Tablet PO 12/04/24 08:59 10 mg QDAY [facility]RIC Administration Dextrose 25 ml 11/04/24 04:57 Dextrose 50%-Water Inj 50 Ml Syringe IV 12/04/24 04:56 Q15MIN PRN BG 50-70 responsive npo pt Dextrose 50 ml 11/04/24 04:57 Dextrose 50%-Water Inj 50 Ml Syringe IV 12/04/24 04:56 Q15MIN PRN BG <50 OR BG <70 & pt unresponsive Glucagon 1 mg 11/04/24 04:57 Glucagon Inj 1 Mg Vial IM Q15MIN PRN BG <70, and no IV access Hydromorphone HCl 1 mg 11/04/24 04:52 11/04/24 05:33 Hydromorphone Inj 2 Mg/Ml Vial IVP 11/09/24 04:51 1 mg Q4H PRN Administration PAIN SCALE 7-10 (Severe Sodium Chloride 1,000 mls @ 100 mls/hr 11/04/24 05:00 11/04/24 05:32 Ns IV 12/04/24 04:59 100 mls/hr .Q10H [facility]RIC Administration Piperacillin Sod/Tazobactam 50 mls @ 12.5 mls/hr 11/04/24 11:00 Sod 3.375 gm/ Sodium Chloride IV 11/11/24 10:59 Q8H [facility] Insulin Glargine 10 unit 11/04/24 09:00 11/04/24 08:37 Insulin Glargine (Lantus) 5 Unit/0.05 Ml (Per 5 Units) SC 12/04/24 08:59 10 unit QDAY C[facility]RIC Administration Insulin Human Lispro 0 unit 11/04/24 05:00 11/04/24 05:25 Insulin Lispro (Admelog) 1 Unit/0.01 Ml Unit SC 12/04/24 04:59 Not Given Q6H [facility] Protocol Ondansetron HCl 4 mg 11/04/24 04:52 Ondansetron Inj 2 Mg/Ml Inj 2 Ml IV 12/04/24 04:51 Q6H PRN NAUSEA OR VOMITING Protocol Oxycodone/Acetaminophen 1 tab 11/04/24 04:52 11/04/24 07:39 Oxycodone/Apap 5/325 Tablet PO 11/09/24 04:51 1 tab Q6H PRN Administration PAIN SCALE 4-6 (Moderate Pantoprazole Sodium 40 mg 11/04/24 09:00 11/04/24 08:36 Pantoprazole Inj 40 Mg Vial IVP 12/04/24 08:59 40 mg QDAY C[facility]RIC Administration Plan Patient is a 69 years old male with past medical history of diabetes mellitus, previous abdominal surgeries presenting with abdominal pain, nausea, vomiting, inability to pass bowel or gas. Found to have small bowel obstruction, possible incarcerated hernia. Possible small bowel obstruction Unlikely incarcerated abdominal wall hernia Patient presented with abdominal pain, nausea and vomiting. Has not had normal bowel movement for a week, complete absence of bowel movement and gas for 2 days. Has large bulge over left lower abdomen with significant tenderness. On exam abdomen is tense, distended and some tenderness over abdominal wall defect. CTA abdomen/pelvis shows large left lower jennie-lateral abdominal wall hernia, containing fat and mildly distended small bowel loops, concerning for incarceration with associated small bowel obstruction Plan: ? Clear liquid diet ? Ondansetron 4 Mg IV every 6 hourly as needed for nausea/vomiting ? Normal saline IV fluids at 100 cc/h ? If nausea or vomiting?use to place patient n.p.o., put on NG tube and start small bowel series as per general surgery recommendations. ? General Surgery, Dr. Lewis consulted and closely following the case. Appreciate recommendations. Unlikely sepsis Lactic acidosis resolving 2/4 SIRS criteria met with leukocytosis and tachycardia, has lactate of 4.1, negative procalcitonin Unclear source of infection, possibly abdominal infection, possibly secondary to bowel incarceration Patient came in and found to have 2 or more SIRS criteria and was evaluated for sepsis. However, based upon further work-up, sepsis was ruled out. Lactic acid 4.1??>3.2 Plan: ? Continue IV fluids ? Continue broad-spectrum coverage with Zosyn 3.375 g IV every 8 hourly started on [11/03? ? Pending blood and urine cultures First-degree AV block History of paroxysmal A-fib EKG shows sinus tachycardia with prolonged NM interval Outpatient follow-up [id number] diabetes mellitus type 2 [6.6%] On admission blood glucose of 272. Fasting blood glucose 128 Plan: ? Continue insulin glargine 10 units SC daily ? Sliding scale insulin to cover for blood glucose spikes. Transaminitis?resolving Metabolic dysfunction associated steatohepatitis On admission AST/ALT of 56/67, ALP 106. Improved to AST 32, ALT 51, ALP 83. CT abdomen/pelvis shows fatty liver Plan: ? Follow-up with PCP Degenerative changes in lumbar spine As seen on CTA abdomen/pelvis Outpatient follow-up Health maintenance: Disposition: Advancing diet as tolerated. Monitor for possible need for NG tube and small bowel series Diet: Clear liquid diet Lines: pIVs GI Prophylaxis: Pantoprazole Thrombo Prophylaxis: Heparin Code status: FULL CODE Plan of care discussed with Attending Dr. Andino and PGY2 Dr. Janel Addison MD PGY 1 Attending Provider Attestation/Addendum I reviewed labs, imaging, EKG, home medications and prior available records. Face to face evaluation was performed by me. I have personally examined the patient and discussed assessment and plan with the IM team. I reviewed the resident note and agree with the plan with exceptions as below. Abdominal wall hernia SBO Lactic acidosis Leukocytosis Transaminitis Diabetes mellitus type 2 Patient's symptoms improved. Consulted general surgery: Recommended trying to start clear liquid diet. If he starts to have nausea/vomiting then n.p.o., NG tube, and small bowel series Management of nausea/vomiting/pain as needed Trend lactic acid: Downtrending Trend WBC: Downtrending Trend LFTs: Downtrending Started the patient on insulin Lantus plus sliding scale insulin. Monitor fingersticks
--- NOTE | 2024-11-04 11:30 | PC.SS ---
Follow up note: Pending Dr. Lewis's recommendations.
[2024-11-04 13:35] LABS: Lactate (Lactic Acid) 3.6 mMol/L (0.4-2.0)
--- NOTE | 2024-11-04 15:29 | PC.SS ---
SS met with patient regarding his d/c plan.? Pt is alert/oriented.? Pt was admitted for Abdominal Pain.? Pt confirmed demographic and contact information is correct on facesheet.? Pt resides alone.? Pt ambulates independently without assistance or DME.? Pt is ok with all ADLs.? Patient?s pharmacy of choice is [facility].? Pt named his dtr, Jasmin Mejia medical decision maker if he is unable.? SS provided pt with verbal choices for d/c to home or SNF.? Patient?s choice is to return home upon d/c.? Pt states he is diabetic, has a glucometer, and test strips. Pt states he does not participate in dialysis.? Pt followed up with PCP in September.?? D/C plan:? Return home Next of Kin:? Jasmin Mejia dtr, phone# [phone] PCP:? Dr. Lewis Address:? Correct on facesheet
[2024-11-04 16:33] LABS: Reflex Lactate? Y
[2024-11-04 16:59] LABS: Lactic Acid, 3 HR 1.9 mMol/L (0.4-2.0)
[2024-11-04] MEDS: INSULIN LISPRO (AdmeLOG) 1 UNIT/0.01 ML UNIT SC (17:13)
--- NOTE | 2024-11-04 22:03 | PC.NURSE ---
ambulated in hallway upto nurses' station with iv pump with gait steady.
[2024-11-05] VITALS (7 sets, daily range): BP systolic 117–139; BP diastolic 72–89; PULSE 65–94; RESP 12–18; TEMP 36.2–36.4; O2SAT 95–99; BMI 34.0
[2024-11-05] MEDS: oxyCODONE/APAP 5/325 TABLET 1 TAB PO ×3 (02:50→14:57)
[2024-11-05] MEDS: SODIUM CHLORIDE 0.9% 1000 ML 1,000 ML 100 ML IV (02:51)
[2024-11-05] MEDS: PIPER/TAZO INJ 3.375 GM in SODIUM CHLORIDE 0.9% (Popper) 50 ML IV (02:57)
[2024-11-05 05:38] LABS: Basophils % (Auto) 0 % (0-2.5); Eosinophils # (Auto) 0.2 Thou/mm3 (0.0-0.5); Eosinophils % (Auto) 3 % (0-10); Hemoglobin 13.6 g/dL (13.5-16.0); Immature Granulocytes % (Auto) 0 % (0-0); Immature Granulocytes Auto 0.02 Thou/mm3 (0.00-0.00); Lymphocytes # (Auto) 2.2 Thou/mm3 (1.0-4.8); Lymphocytes % (Auto) 32 % (10-50); Mean Corpuscular HGB Conc 33.2 g/dl (31.0-37.0); Mean Corpuscular Volume 87 fL (80-100); Monocytes # (Auto) 0.4 Thou/mm3 (0.0-0.8); Monocytes % (Auto) 6 % (0-12); Neutrophils % (Auto) 58 % (37-80); Nucleated Red Blood Cell % 0 /100 WBC (0); Platelet Count 129 Thou/mm3 (140-440); RDW Standard Deviation 44.2 fL (35.1-43.9); Red Blood Count 4.69 Miln/mm3 (4.50-5.90); White Blood Count 6.9 Thou/mm3 (3.8-10.6)
[2024-11-05 06:14] LABS: Alanine Aminotransferase 39 U/L (10-49); Albumin/Globulin Ratio 1.6 (1.2-2.2); Alkaline Phosphatase 75 U/L (46-116); Anion Gap 8 (7-16); Aspartate Amino Transferase 22 U/L (0-34); BUN/Creatinine Ratio 10 Ratio (12-20); Bilirubin,Total 0.4 mg/dL (0.3-1.2); Blood Urea Nitrogen 9 mg/dL (9-23); Calcium 9.3 mg/dL (8.3-10.6); Calcium (Corrected) 9.3 mg/dL (8.5-10.1); Carbon Dioxide 28.3 mMol/L (20.0-31.0); Chloride 106 mMol/L (98-107); Creatinine (Component) 0.9 mg/dL (0.6-1.3); Estimated Creatinine Clearance 103.8 mL/min (>60); Globulin 2.5 gm/dL (2.3-3.5); Glucose 109 mg/dL (74-106); Osmolality,Calculated 282 (275-295); Potassium 3.9 mMol/L (3.4-5.1); Sodium 142 mMol/L (136-145); Total Protein 6.5 gm/dL (5.7-8.2); eGFR > 60 See Note
[2024-11-05] MEDS: HYDROmorphone INJ 2 MG/ML VIAL 1 MG IVP (06:35)
[2024-11-05] MEDS: BACLOFEN 10 MG TABLET PO (08:32)
[2024-11-05] MEDS: PANTOPRAZOLE INJ 40 MG VIAL IVP (08:38)
[2024-11-05] MEDS: INSULIN GLARGINE (Lantus) 5 UNIT/0.05 ML (PER 5 UNITS) 10 UNIT SC (08:38)
--- NOTE | 2024-11-05 12:08 | PD.SURPROG ---
Documentation for date of: 11/05/24 Subjective Subjective Brief History: 69M with DM presenting with abdominal pain and nausea. Pt reports his pain began yesterday in the left lower quadrant, associated with nausea/vomiting which has since resolved. He states his pain is now improved and he no longer has nausea, is feeling hungry. In ER he underwent CT which showed a left anterolateral abdominal wall hernia containing small bowel PMH: DM PSHx: Cholecystectomy, muscle graft from left abdominal wall to left ankle Narrative: Pain controlled, no nausea, tolerating liquid diet and had multiple bowel movements Exam Vital Signs Temp Pulse Resp BP Pulse Ox O2 Del Method 97.2 F 67 17 117/72 99 Room Air 11/05/24 07:54 11/05/24 07:54 11/05/24 07:54 11/05/24 07:54 11/05/24 07:54 11/05/24 07:54 Constitutional Constitutional: no acute distress Routine Respiratory Exam Respiratory: Present no resp distress Routine Abdominal Exam Abdominal: Present soft and hernia (Left lower quadrant hernia overlying skin changes, reducible, patient states is at baseline appearance ); Absent tenderness Results Results: Laboratory Laboratory results: results reviewed Assessment & Plan Plan 69M with DMII, large left anterolateral abdominal wall hernia containing small bowel who presented with pain and nausea which has since resolved. Despite CT reading pt does not have signs/symptoms of bowel incarceration is recovering well with bowel function Agree with advancing diet Okay for DC if tolerating
[2024-11-05] MEDS: INSULIN LISPRO (AdmeLOG) 1 UNIT/0.01 ML UNIT SC (13:54)
--- NOTE | 2024-11-05 14:39 | PD.RESDS ---
Planned Discharge Date 11/05/24 DS: Providers Provider Date of admission: 11/04/24 04:49 Primary care physician: Pedro Lewis MD Admitting Provider: Timbo Ortiz MD Attending Provider on Admission: Wilder Andino MD Consults: 11/04/24 05:51 Consult to General Surgery Urgent Comment: SBO, concern for incarcerated bowel Consulting Provider: Liset Lewis Attending Provider on DC: Paz Loera MD Discharging Provider: Paz Loera MD DS: Diagnosis Problem List Completed Was Problem List Reviewed/Reconciled?: Yes Hospital Course Hospital Course Hospital course: Reason for hospitalization: Small bowel obstruction with concern for incarcerated hernia Patient is a 69-year-old male with past medical history of diabetes mellitus, cholecystectomy, muscle graft from abdominal wall to left ankle who presented to the ED with complaint of abdominal pain, nausea, and vomiting for 2 days. ED workup had revealed leukocytosis and lactic acidosis, CTA abdomen/pelvis had shown large left lower anterolateral abdominal wall hernia with distended bowel loops concerning for incarceration therefore the patient was admitted for further management of small bowel obstruction and General Surgery was consulted. He was started on Zosyn for the concern of incarcerated bowel at first. On evaluation General Surgery did not feel patient clinically met sign or symptoms of incarcerated bowel. Patient was managed medically without need for surgical intervention, tolerated clear liquid diet and advanced, and started having multiple soft bowel movements with improvement of abdominal pain. Patient was determined stable for discharge. Discharge Recommendations: -Follow up with PCP within 1 week of discharge -Continue rest of medications as previously prescribed -Return to the ED or call EMS if symptoms return and/or worsen. 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 Guadalupe. Paz Loera, PGY-2 Time Spent with Patient Time attestation: Total time spent providing and/or coordinating discharge services: Exam Vital Signs Temp Pulse Resp BP Pulse Ox O2 Del Method 97.6 F 65 12 137/82 H 95 Room Air 11/05/24 12:00 11/05/24 12:11/05/24 12:11/05/24 12:11/05/24 12:11/05/24 12:00 Narrative Exam Physical Exam General: Awake and in no acute distress. Conversational and non-toxic appearing. HEENT: Normocephalic, atraumatic, mucous membranes moist. Heart: Regular rate and rhythm, no murmurs. Lungs: Clear to auscultation with no wheezing or crackles. Abdomen: Rectus diasthesis located on the left. Soft, nondistended, nontender, positive bowel sounds. ?No guarding or rebound tenderness. Neurologic: Alert and oriented x3, no gross neurological deficit, and patient able to move all 4 extremities. Extremities: Left ankle non-pitting edema, large bulge in area of prior surgeries. Skin: No rash or ecchymoses. Discharge Plan Plan Patient Disposition: HOME (Self Care) Patient condition on transfer: Stable Care Plan Goals: Discharge Recommendations: -Follow up with PCP within 1 week of discharge -Continue rest of medications as previously prescribed -Return to the ED or call EMS if symptoms return and/or worsen. Prescriptions/Referrals Prescriptions/Med Rec: Continued tramadol 50 mg Tablet 50 mg PO BID alprazolam [Xanax] 0.5 mg Tablet 0.5 mg PO BID PRN (Reason: Anxiety) metformin 1,000 mg Tablet 1,000 mg PO BID Qty: 0 0RF Rx Instructions: Hold until 08/29/18 baclofen 10 mg tablet 10 mg PO BID PRN (Reason: muscle spasms) Patient Comments: TK 1 T PO BID PRN cetirizine 10 mg Tablet 10 mg PO QDAY pentoxifylline 400 mg Tablet Extended Release 400 mg PO BID Rx Instructions: must administer with a meal/food ferrous sulfate 325 mg (65 mg iron) Tablet 325 mg PO QDAY gabapentin 300 mg Tablet Extended Release 24 Hr 300 mg PO TID oxycodone-acetaminophen [Percocet] 10-325 mg tablet 1 tab PO Q6H PRN (Reason: pain) Rx Instructions: left ankle pain Ozempic 2 mg/dose (8 mg/3 mL) pen injector 2 mg SUBCUT QWEEK Patient Comments: INJECT 2 mg SUBCUTANEOUSLY EVERY WEEK Rx Instructions: Q Fridays Discontinued aspirin 81 mg Tablet,Delayed Release (Dr/Ec) 81 mg PO QDAY Referrals: Pedro Lewis MD [Primary Care Provider] - Patient/Caregiver Discharge Instructions Education Materials: Small Bowel Obstruction, What Is a Hernia?, How a Hernia Develops, Obstruction Intestinal Print Language: Serbian Stand Alone Forms: Suha Award Info., Patient Portal Info Letter Discharge Order Discharge Orders: Discharge (Routine); Ordered 11/05/24 Ordered By: Paz Loera Quality Discharge Quality Measures VTE prophylaxis MD Attestestation MD Attestation I have examined the patient, reviewed labs and imaging findings, discussed the case with the resident(s), and reviewed entered orders. I agree with the plan of care as outlined in this note. Dr. Anayeli MD
== END 2024-11-05 15:45 | disposition home or self-care (01) | DRG 389 ==
LOC: SERX 11-04 04:22 → SERHOLD 11-04 05:17 → S2NX 11-04 06:01
PROVIDERS: Internal Medicine; Physician Assistant; Admitting Provider Student in an Organized Health Care Education/Training Program; Emergency Provider Emergency Medicine; PCP Family Medicine; Visit Provider Student in an Organized Health Care Education/Training Program
DX: K56.609 Unspecified intestinal obstruction, unspecified as to partial versus complete obstruction (principal); E87.20 Acidosis, unspecified; K43.6 Other and unspecified ventral hernia with obstruction, without gangrene; I44.0 Atrioventricular block, first degree; I48.0 Paroxysmal atrial fibrillation; E11.65 Type 2 diabetes mellitus with hyperglycemia; K75.81 Nonalcoholic steatohepatitis (NASH); M47.816 Spondylosis without myelopathy or radiculopathy, lumbar region; D72.829 Elevated white blood cell count, unspecified; R74.01 Elevation of levels of liver transaminase levels; Z90.49 Acquired absence of other specified parts of digestive tract; Z79.82 Long term (current) use of aspirin; Z87.891 Personal history of nicotine dependence
CPT/HCPCS: 36415; 71045; 74174; 77080; 80053; 80061; 81001; 83036; 83605; 83615; 83690; 83735; 83880; 84100; 84145; 84484; 85025; 85610; 85730; 87040; 87086; 87811; 93005; 96361; 96365; 96375; 99291; A4649; J1815; J2270; J2405; J2470; J2543; J3490; J7030; J7050; Q9967; A9270

== ENCOUNTER → 2025-02-20 | Outpatient (CLI) | payer MEDICARE, MEDICAID, SELFPAY ==
[2025-02-20 13:47] LABS: Basophils % (Auto) 0 % (0-2.5); Eosinophils # (Auto) 0.2 Thou/mm3 (0.0-0.5); Eosinophils % (Auto) 3 % (0-10); Hematocrit 44.5 % (41.0-53.0); Hemoglobin 15.1 g/dL (13.5-16.0); Immature Granulocytes % (Auto) 0 % (0-0); Immature Granulocytes Auto 0.03 Thou/mm3 (0.00-0.00); Lymphocytes # (Auto) 1.8 Thou/mm3 (1.0-4.8); Lymphocytes % (Auto) 23 % (10-50); Mean Corpuscular HGB Conc 33.9 g/dl (31.0-37.0); Mean Corpuscular Hemoglobin 29.2 pg (25.0-35.0); Mean Corpuscular Volume 86 fL (80-100); Monocytes # (Auto) 0.5 Thou/mm3 (0.0-0.8); Monocytes % (Auto) 7 % (0-12); Neutrophils % (Auto) 66 % (37-80); Nucleated Red Blood Cell % 0 /100 WBC (0); Platelet Count 167 Thou/mm3 (140-440); RDW Standard Deviation 39.9 fL (35.1-43.9); Red Blood Count 5.17 Miln/mm3 (4.50-5.90); White Blood Count 7.6 Thou/mm3 (3.8-10.6)
[2025-02-20 14:00] LABS: Glucose Estimated Average 146 mg/dL (80-131); Hemoglobin A1C 6.7 % Hgb (4.8-6.0)
[2025-02-20 14:13] LABS: Alanine Aminotransferase 35 U/L (10-49); Albumin, Serum 4.9 gm/dL (3.4-4.8); Albumin/Globulin Ratio 1.9 (1.2-2.2); Alkaline Phosphatase 91 U/L (46-116); Anion Gap 10 (7-16); Aspartate Amino Transferase 29 U/L (0-34); BUN/Creatinine Ratio 17 Ratio (12-20); Bilirubin,Total 0.3 mg/dL (0.3-1.2); Blood Urea Nitrogen 17 mg/dL (9-23); Calcium 10.3 mg/dL (8.3-10.6); Calcium (Corrected) 10.3 mg/dL (8.5-10.1); Carbon Dioxide 27.2 mMol/L (20.0-31.0); Cardiac Risk Estimate 5.3 RATIO (4.0-6.7); Chloride 103 mMol/L (98-107); Cholesterol 170 mg/dL (132-200); Globulin 2.6 gm/dL (2.3-3.5); Glucose 157 mg/dL (74-106); HDL Cholesterol 32 mg/dL (40-60); LDL Cholesterol,Calculated 105 mg/dL (0-130); Osmolality,Calculated 283 (275-295); Sodium 140 mMol/L (136-145); Total Protein 7.5 gm/dL (5.7-8.2); Triglycerides 167 mg/dL (30-150); eGFR > 60 See Note
[2025-02-20 14:32] LABS: Creatinine MALB Rnd Ur 84 mg/dL (30-125); Microalbumin, Random Urine < 3 mg/L (0-300)
== END | disposition home or self-care (01) ==
LOC: COPL 12:00
PROVIDERS: PCP Family Medicine; Referring Provider Family Medicine; Visit Provider Family Medicine
DX: M51.361 Other intervertebral disc degeneration, lumbar region with lower extremity pain only (principal); E11.65 Type 2 diabetes mellitus with hyperglycemia
CPT/HCPCS: 36415; 80053; 80061; 82043; 82570; 83036; 85025

== ENCOUNTER 2025-07-10 11:30 | Emergency (ER) | payer OTHER, MEDICAID, SELFPAY ==
--- NOTE | 2025-07-10 11:37 | XR_ITS ---
Examination: Hand, complete, right Technique: Hand AP, oblique, lateral 4 views Date and time of exam: 07/10/2025, 12:55 p.m. INDICATION: Crush injury today COMPARISON: None FINDINGS: No acute fracture or dislocation. No significant osteoarthrosis. Dorsal soft tissue swelling is present at the wrist and proximal dorsal portion of the hand. Atherosclerotic calcifications are present on the volar side of the distal forearm and wrist. No radiodense foreign body. IMPRESSION: No evidence for acute fracture or dislocation in the right hand. Soft tissue swelling noted.
--- NOTE | 2025-07-10 11:38 | EDNOTE_ITS ---
<Statement entered by Sanjuana Pratt MD - 07/12/25 17:54> As co-signing physician, I was present and available for consult prn. I concur with the plan and care as documented by the midlevel provider. ED General RME/HPI General Chief complaint: Wound/Laceration Stated complaint: r hand lac Time Seen by Provider: 07/10/25 11:36 Arrival date/time: 07/10/25 11:30 CC: Right hand pain HPI patient was working on his truck when the equipment dropped directly onto the dorsum of his hand. Causing a laceration. The patient denies any blood thinners localized pain is 5-6 on a 10 scale. Unknown when the last tetanus. Patient is awake alert in moderate discomfort not in any acute distress. Related Data Home Medications ?Medication ?Instructions ?Recorded ?Confirmed alprazolam 0.5 mg tablet (Xanax) 0.5 mg PO BID PRN Anx iety 08/25/18 11/04/24 tramadol 50 mg tablet 50 mg PO BID 08/25/18 baclofen 10 mg tablet 10 mg PO BID PRN muscle spas ms 08/02/19 11/04/24 cetirizine 10 mg tablet 10 mg PO QDAY 08/21/2211/04 ferrous sulfate 325 mg (65 mg 325 mg PO QDAY 08/21/22 11/04/24 iron) tablet gabapentin 300 mg tablet,extended 300 mg PO TID 11/04/24 release 24 hr pentoxifylline 400 mg 400 mg PO BID 08/21/2211/04 tablet,extended release oxycodone-acetaminophen 10 mg-325 1 tab PO Q6H PRN wilfrido n 11/04/24 11/04/24 mg tablet (Percocet) semaglutide 2 mg/dose (8 mg/3 mL) 2 mg subcut QWEEK Bl ood sugar 11/04/24 11/04/24 subcutaneous pen injector (Ozempic) control and weight loss Previous Rx's ?Medication ?Instructions ?Recorded metformin 1,000 mg tablet 1,000 mg PO BID #0 tabs 08/08 acetaminophen 500 mg tablet 500 mg PO Q6H PRN pain #20 tabs 07/10/25 (Tylenol Extra Strength) Allergies Allergy/AdvReac Type Severity Reaction Status Date / Time No Known Allergies Allergy Verified 08/22/22 09:31 Review of Systems Review of Systems Narrative Review of Systems: GEN: No fever, no chills, no weight loss EYES: No discharge, no visual changes, no pain HEENT: No ear pain, no congestion, no sore throat PULM: No shortness of breath, no cough, no congestion CV: No chest pain, no dyspnea on exertion, no palpitations GI: No nausea, no vomiting, no diarrhea, no pain, no constipation : No frequency, no urgency, no dysuria MUSC/SKEL: No joint pain, no back pain SKIN:+ Laceration, no rash PSYCH: No hallucinations, no depression HEME/LYMPH: No easy bleeding or bruising tendencies NEURO: No weakness, no headache Course Quality Measures none Orders Category Date Time Status Set Up Suture Tray STAT Care 07/10/25 11:37 Active XR hand comp RT min 3V Stat Exams 07/10/25 11:37 Completed Ketorolac Inj [Toradol Inj] Med 07/10/25 12:22 Discontinued 30 mg IM X1 ONE Lidocaine 1% 20 ml [Xylocaine 1% 20 ML] Med 07/10/25 11:37 Discontinued 20 ml INFL X1 ONE TET,DIP/PERT AC (Adult)-Tdap [Boostrix Adult (Tdap) Med 07/10/25 11:37 Discontinued Vacc] 0.5 ml IMI .ONCE ONE Vital Signs Vital signs: Vital Signs Temperature 98.0 F 07/10/25 12:30 Pulse Rate 93 07/10/25 12:30 Respiratory Rate 18 07/10/25 12:30 Blood Pressure 121/84 07/10/25 12:30 Pulse Oximetry (%) 95 07/10/25 12:30 Oxygen Delivery Method Room Air 07/10/25 12:30 PROCEDURES: Procedure Comment Laceration repair verbal consent obtained: Anesthesia: 1% lidocaine without epinephrine injected in the local site, site was cleaned and probed no foreign body was found the site continues to ooze. Site was then approximated with 3 interrupted sutures of 3-0 Ethilon with good approximation without complication patient tolerated the procedure well. Bulky dressing was applied. Discharge Plan Plan Patient Disposition: HOME (Self Care) Patient condition on transfer: Stable Prescriptions/Referrals Prescriptions/Med Rec: New acetaminophen [Tylenol Extra Strength] 500 mg tablet 500 mg PO Q6H PRN (Reason: pain) Qty: 20 0RF No Action tramadol 50 mg Tablet 50 mg PO BID alprazolam [Xanax] 0.5 mg Tablet 0.5 mg PO BID PRN (Reason: Anxiety) metformin 1,000 mg Tablet 1,000 mg PO BID Qty: 0 0RF Rx Instructions: Hold until 08/29/18 baclofen 10 mg tablet 10 mg PO BID PRN (Reason: muscle spasms) Patient Comments: TK 1 T PO BID PRN cetirizine 10 mg Tablet 10 mg PO QDAY pentoxifylline 400 mg Tablet Extended Release 400 mg PO BID Rx Instructions: must administer with a meal/food ferrous sulfate 325 mg (65 mg iron) Tablet 325 mg PO QDAY gabapentin 300 mg Tablet Extended Release 24 Hr 300 mg PO TID oxycodone-acetaminophen [Percocet] 10-325 mg tablet 1 tab PO Q6H PRN (Reason: pain) Rx Instructions: left ankle pain Ozempic 2 mg/dose (8 mg/3 mL) pen injector 2 mg SUBCUT QWEEK Patient Comments: INJECT 2 mg SUBCUTANEOUSLY EVERY WEEK Rx Instructions: Q Fridays Referrals: No Primary/Family,Physician [Primary Care Provider] - In 1 week Problem List Clinical Impression: Hand laceration, Contusion of hand Patient/Caregiver Discharge Instructions Other Activity Instructions:: Keep the site clean and dry, any signs of infection such as redness pus or swelling return to the emergency room for reevaluation. Get the sutures out in 12 to 14 days. Education Materials: ED Laceration: All Closures Print Language: Luxembourgish Stand Alone Forms: Suha Award Info., Patient Portal Info Letter, Work/School Release PA/PANEL MACHINE TENDER Supervising Physician PA/PANEL MACHINE TENDER Supervising Physician: Randy Beauchamp ENP [facility] Clinical Information Provided by: patient Medical Records reviewed [facility] Meds/Rx considered, not ordered None Labs/Rad/Tests considered, not ordered None Imaging Imaging interpretation: interpreted by me Imaging Interpretation(s): No fractures in the hand appreciated. Medication Administration(s) Medication Administration History Discontinued Medications Diphtheria/Tetanus/Acell Pertussis (Diphth,Pertuss(Acell),Tet Vac 0.5 Ml Syr- Adult) 0.5 ml IMi .ONCE ONE Stop: 07/10/25 11:38 Last Admin: 07/10/25 12:25 Dose: 0.5 ml Documented By: BY Ketorolac Tromethamine (Ketorolac Inj 30 Mg/Ml Vial) 30 mg IM X1 ONE Stop: 07/10/25 12:23 Last Admin: 07/10/25 12:34 Dose: 30 mg Documented By: BY Lidocaine HCl (Lidocaine Hcl 1% 20 Ml Vial) 20 ml INFL X1 ONE Stop: 07/10/25 11:38 Last Admin: 07/10/25 12:25 Dose: 20 ml Documented By: BY
[2025-07-10] MEDS: LIDOCAINE HCL 1% 20 ML VIAL INFL (12:25)
[2025-07-10] MEDS: DIPHTH,PERTUSS(ACELL),TET VAC 0.5 ML SYR- ADULT IMi (12:25)
[2025-07-10 12:30] VITALS: BP 121/84; PULSE 93; RESP 18; TEMP 36.7; O2SAT 95
[2025-07-10 12:32] VITALS: BMI 26.3
[2025-07-10] MEDS: KETOROLAC INJ 30 MG/ML VIAL IM (12:34)
[2025-07-10 13:24] VITALS: BP 123/88; PULSE 85; RESP 18; O2SAT 96
== END 2025-07-10 13:28 | disposition home or self-care (01) ==
PROVIDERS: Emergency Provider Emergency Medicine
DX: S61.411A Laceration without foreign body of right hand, initial encounter (principal); W45.8XXA Other foreign body or object entering through skin, initial encounter
CPT/HCPCS: 12001; 73130; 90471; 90715; 96372; 99283; J1885; J3490

== ENCOUNTER 2025-07-18 11:49 | Emergency (ER) | payer OTHER, MEDICAID, SELFPAY ==
[2025-07-18 11:57] VITALS: BP 146/76; PULSE 84; RESP 18; TEMP 36.9; O2SAT 97; BMI 33.7
--- NOTE | 2025-07-18 12:12 | EDNOTE_ITS ---
<Statement entered by Sanjuana Pratt MD - 07/18/25 16:25> As co-signing physician, I was present and available for consult prn. I concur with the plan and care as documented by the midlevel provider. ED Skin Abcess FB-RME/HPI General Chief complaint: Skin/Abscess/Foreign Body Stated complaint: infection to right hand, needs abx Time Seen by Provider: 07/18/25 12:03 Arrival date/time: 07/18/25 11:49 70-year-old male with medical history significant for diabetes presents to the department today for complaints infection right hand patient had sutures placed on last visit and now has infection at the site Limitations: no limitations Related Data Home Medications ?Medication ?Instructions ?Recorded ?Confirmed alprazolam 0.5 mg tablet (Xanax) 0.5 mg PO BID PRN Anx iety 08/25/18 11/04/24 tramadol 50 mg tablet 50 mg PO BID 08/25/18 baclofen 10 mg tablet 10 mg PO BID PRN muscle spas ms 08/02/19 11/04/24 cetirizine 10 mg tablet 10 mg PO QDAY 08/21/2211/04 ferrous sulfate 325 mg (65 mg 325 mg PO QDAY 08/21/22 11/04/24 iron) tablet gabapentin 300 mg tablet,extended 300 mg PO TID 11/04/24 release 24 hr pentoxifylline 400 mg 400 mg PO BID 08/21/2211/04 tablet,extended release oxycodone-acetaminophen 10 mg-325 1 tab PO Q6H PRN wilfrido n 11/04/24 11/04/24 mg tablet (Percocet) semaglutide 2 mg/dose (8 mg/3 mL) 2 mg subcut QWEEK Bl ood sugar 11/04/24 11/04/24 subcutaneous pen injector (Ozempic) control and weight loss Previous Rx's ?Medication ?Instructions ?Recorded metformin 1,000 mg tablet 1,000 mg PO BID #0 tabs 08/08 acetaminophen 500 mg tablet 500 mg PO Q6H PRN pain #20 tabs 07/10/25 (Tylenol Extra Strength) clindamycin HCl 150 mg capsule 450 mg (3 x 150 mg) PO TID 7 days 07/18/25 #63 caps ibuprofen 800 mg tablet 800 mg PO TID PRN pain #30 t abs 07/18/25 Allergies Allergy/AdvReac Type Severity Reaction Status Date / Time No Known Allergies Allergy Verified 07/18/25 11:51 Review of Systems Review of Systems Systems Reviewed: All systems reviewed, normal except as documented Constitutional Constitutional: Reports system reviewed and no additional complaints, except as documented, Denies fever(s) and Denies headache(s) Eyes Eyes: Reports system reviewed and no additional complaints, except as documented and Denies blurry vision ENT Ears, Nose, Mouth, and Throat: Reports system reviewed and no additional complaints, except as documented, Denies headache(s), Denies nasal congestion and Denies nasal discharge Cardiovascular Cardiovascular: Reports system reviewed and no additional complaints, except as documented, Denies chest pain and Denies dyspnea Respiratory Respiratory: Reports system reviewed and no additional complaints, except as documented, Denies chest congestion, Denies cough and Denies dyspnea Gastrointestinal Gastrointestinal: Reports system reviewed and no additional complaints, except as documented and Denies abdominal pain Integumentary/Breasts Skin/Breast: Reports system reviewed and no additional complaints, except as documented, Denies rash and Reports wounds (Sutures in place dorsal aspect right hand erythema swelling) Neurologic Neurologic: Reports system reviewed and no additional complaints, except as documented, Reports as per HPI and Denies headache(s) Past Medical History Past Medical History NEUROLOGIC: Negative Neurological Disorders or Seizures CARDIAC: Positive Varicose Veins; Negative Cardiac Disorders, Congestive Heart Failure, Edema or Cellulitis RESPIRATORY: Negative Chronic Obstructive Pulmonary Disease (COPD), Asthma, Bronchitis, Tuberculosis or Sleep Apnea GASTROINTESTINAL: Positive Gastrointestinal Disorders, Gall Bladder Disease (LAP) and Obstructive Bowel; Negative Hepatitis GENITOURINARY: Negative Genitourinary Disorders or Renal Disease MUSCULOSKELETAL: Positive Musculoskeletal Disorders and Arthritis ENDOCRINE: Positive Endocrine Disorders and Diabetes Mellitus Type 2 (TAKES PO AND SUBQ); Negative Diabetes Mellitus Type 1 HEMATOLOGIC: Positive Blood Disorders and Anemia (TAKES IRON); Negative Sickle Cell Disease OTHER HISTORY: Positive Falls (08/05/22 NO ER) and Chicken Pox; Negative Hospitalization, Autoimmune Disease, Shingles, Blood Transfusions, Blood Transfusion Reaction, Anesthesia Reactions, Chemotherapy, Radiation Therapy, MRSA, Measles, Mumps or Cancer Family History FAMILY HISTORY: Positive Family Cancer (FATHER (MOUTH,TUMOR)); Negative Family Psychiatric Problems, Family Respiratory Disorders, Family Cardiac Disorders, Family Gastrointestinal Problems, Family Surgery or Family Anesthesia Reaction Surgical History SURGICAL: Positive Angiogram, Abdominal Surgery, Joint Replacement and Vasectomy; Negative Pacemaker Social History SMOKING STATUS: Former smoker SUBSTANCE USE: does not use ED Exam General Limitations: Present no limitations General appearance: Present alert and in no apparent distress Head Head exam: Present atraumatic Eye Eye exam: Present normal appearance, PERRL and EOMI ENT ENT exam: Present normal exam, normal oropharynx and mucous membranes moist Neck Neck exam: Present normal inspection, full ROM and trachea midline Chest Chest inspection: Present normal inspection and symmetric chest wall rise Respiratory Respiratory exam: Present normal lung sounds bilaterally Cardiovascular Cardiovascular exam: Present regular rate, normal rhythm and normal heart sounds Abdominal Exam Abdominal exam: Present soft and normal bowel sounds Extremities Exam Extremities exam: Present full ROM, tenderness and normal capillary refill; Absent joint swelling Back Exam Back exam: Present normal inspection and full ROM Neurological Exam Neurological exam: Present alert, oriented X3 and CN II-XII intact Psychiatric Psychiatric exam: Present normal affect and normal mood Skin Skin exam: Present warm, dry, intact and normal color Course Quality Measures none Orders Category Date Time Status Lidocaine 1% 20 ml [Xylocaine 1% 20 ML] Med 07/18/25 12:03 Discontinued 2.1 ml INFL X1 ONE cefTRIAXone [Rocephin] Med 07/18/25 12:03 Discontinued 1,000 mg IM X1 ONE Vital Signs Vital signs: Vital Signs Temperature 98.4 F 07/18/25 11:57 Pulse Rate 84 07/18/25 11:57 Respiratory Rate 18 07/18/25 11:57 Blood Pressure 146/76 H 07/18/25 11:57 Pulse Oximetry (%) 97 07/18/25 11:57 Oxygen Delivery Method Room Air 07/18/25 11:57 O2 saturation 97% on room air with normal limits Skin / Abscess / Foreign Body MDM Narrative MDM Narrative:: 70-year-old male with medical history significant for diabetes presents to the department today for complaints infection right hand patient had sutures placed on last visit and now has infection at the site On exam patient does have some erythema at the suture site sutures were removed no fluid expressed Patient does have swelling of the right hand most in the dorsal aspect patient can move all fingers but reports pain with movement Patient given injection of Rocephin discharged with clindamycin Explained the patient would like him to return in 2 to 3 days for reevaluation for worsening symptoms and to return immediately Patient data External records reviewed:: [facility] previous records Clinical information provided by:: patient Social determinants that could affect healthcare access:: none Patient has the following chronic illnesses:: None How is presenting disease/condition affected by chronic disease/condition?: no chronic disease Evaluation data The following diagnostics were reviewed and interpreted by me:: other (specify) (N/A) Lab and/or radiology exams considered but not ordered:: Considered not ordered Interpretation Summary: N/A Medications / Prescriptions Medications or Prescriptions considered but not ordered:: Given Medication administrations:: Medication Administration History Discontinued Medications Ceftriaxone Sodium (Ceftriaxone Sod Inj 1,000 Mg Vial) 1,000 mg IM X1 ONE Stop: 07/18/25 12:04 Lidocaine HCl (Lidocaine Hcl 1% 20 Ml Vial) 2.1 ml INFL X1 ONE Stop: 07/18/25 12:04 Given Consultations Consultation(s) initiated? (list below): No Diagnosis Skin/Abscess Differential Diagnosis: abscess of skin or subcutaneous tissue and cellulitis Most likely diagnosis given after review of the tests above:: Swelling right hand, infection, cellulitis Admission Indicated Admission indicated?: not indicated Admission Request Was there a request for admission?: No Disposition Plan Disposition Plan: Discharge Discharge Attestation Discharge Attestation: The patient and all family members were given an opportunity to ask questions and understood the discharge instructions. Discharge instructions specifically effects, indications for sooner follow up or return to the emergency department, and the expected course of current diagnosis. Patient condition: Stable Discharge Plan Plan Patient Disposition: HOME (Self Care) Discharge Disposition comment: Stable Prescriptions/Referrals Prescriptions/Med Rec: New ibuprofen 800 mg tablet 800 mg PO TID PRN (Reason: pain) Qty: 30 0RF clindamycin HCl 150 mg capsule 450 mg PO TID 7 Days Qty: 63 0RF No Action tramadol 50 mg Tablet 50 mg PO BID alprazolam [Xanax] 0.5 mg Tablet 0.5 mg PO BID PRN (Reason: Anxiety) metformin 1,000 mg Tablet 1,000 mg PO BID Qty: 0 0RF Rx Instructions: Hold until 08/29/18 baclofen 10 mg tablet 10 mg PO BID PRN (Reason: muscle spasms) Patient Comments: TK 1 T PO BID PRN cetirizine 10 mg Tablet 10 mg PO QDAY pentoxifylline 400 mg Tablet Extended Release 400 mg PO BID Rx Instructions: must administer with a meal/food ferrous sulfate 325 mg (65 mg iron) Tablet 325 mg PO QDAY gabapentin 300 mg Tablet Extended Release 24 Hr 300 mg PO TID oxycodone-acetaminophen [Percocet] 10-325 mg tablet 1 tab PO Q6H PRN (Reason: pain) Rx Instructions: left ankle pain Ozempic 2 mg/dose (8 mg/3 mL) pen injector 2 mg SUBCUT QWEEK Patient Comments: INJECT 2 mg SUBCUTANEOUSLY EVERY WEEK Rx Instructions: Q Fridays acetaminophen [Tylenol Extra Strength] 500 mg tablet 500 mg PO Q6H PRN (Reason: pain) Qty: 20 0RF Problem List Clinical Impression: Infection of right hand Patient/Caregiver Discharge Instructions Education Materials: ED Wound Check (Infection) Additional Instructions: Please follow up with your primary care doctor in the next 24-48hrs for any worsening symptoms return here immediately Print Language: Chinese Stand Alone Forms: Suha Award Info., Patient Portal Info Letter PA/POLITICAL CONSULTANT Supervising Physician PA/RITA Supervising Physician: Dr. pratt
[2025-07-18] MEDS: LIDOCAINE HCL 1% 20 ML VIAL 2.1 ML INFL (12:26)
[2025-07-18] MEDS: cefTRIAXone SOD INJ 1,000 MG VIAL 1000 MG IM (12:26)
== END 2025-07-18 13:22 | disposition home or self-care (01) ==
LOC: SERX 12:53
PROVIDERS: Emergency Provider Emergency Medicine; PCP Family Medicine
DX: L08.9 Local infection of the skin and subcutaneous tissue, unspecified (principal); E11.9 Type 2 diabetes mellitus without complications
CPT/HCPCS: 96372; 99282; J0696; J3490